=== PATIENT | female | born 1960 | race Caucasian/White ===

== ENCOUNTER 2020-07-10 10:17 | Outpatient (CLI) | payer BC ==
--- NOTE | 2020-07-10 11:03 | BD ---
EXAM: DEXA bone density examination HISTORY: 59-year-old postmenopausal female for screening COMPARISON: None FINDINGS: L1--bone mineral density 0.661 g/sq cm; T score -3.0 L2--bone mineral density 0.694 g/sq cm; T score -3.0 L3--bone mineral density 0.750 g/sq cm; T score -3.0 L4--bone mineral density 0.774 g/sq cm; T score -2.6 Total L1-L4--bone mineral density 0.723 g/sq cm; T score -2.9 Left femoral neck--bone mineral density0.568; T score -2.5 Total proximal left femur--bone mineral density 0.813; T score -1.1 IMPRESSION: Osteoporosis.
== END 2020-07-10 10:18 | disposition home or self-care (01) ==
LOC: BICMAMMO 10:17
PROVIDERS: ATTEND Family Medicine
DX: M81.0 Age-related osteoporosis without current pathological fracture (principal)
CPT/HCPCS: 77080